=== PATIENT | male | born 1995 | race African-American/Black ===

== ENCOUNTER 2023-06-30 15:02 | Emergency (ER) | payer SELFPAY ==
[~2023-06-30] VITALS: Ht 172.7 cm; Wt 78.0 kg
[2023-06-30 15:34] VITALS: BP 151/86; PULSE 55; RESP 16; TEMP 98.7; O2SAT 100
[2023-06-30] MEDS ORDERED: VALA100044 MT (16:59)
== END 2023-06-30 17:58 | disposition home or self-care (01) ==
LOC: ER 15:02
DX: B00.1 Herpesviral vesicular dermatitis (principal); J45.909 Unspecified asthma, uncomplicated
CPT/HCPCS: 86592; 99283